=== PATIENT | male | born 1995 | race Caucasian/White ===

== ENCOUNTER 2023-02-21 09:40 | Emergency (ER) | payer SELFPAY ==
[~2023-02-21] VITALS: Ht 170.2 cm; Wt 75.0 kg
[2023-02-21 09:46] VITALS: O2SAT 99
[2023-02-21] MEDS ORDERED: IBUP-2028 PO (11:36)
[2023-02-21 13:22] VITALS: BP 128/75; PULSE 69; RESP 14; TEMP 99.3
== END 2023-02-21 13:31 | disposition home or self-care (01) ==
LOC: ER 09:40
DX: S93.402A Sprain of unspecified ligament of left ankle, initial encounter (principal); W18.39XA Other fall on same level, initial encounter; Y93.89 Activity, other specified; Y92.89 Other specified places as the place of occurrence of the external cause; Y99.8 Other external cause status
CPT/HCPCS: 73610; 73630; 99284; Z7610